=== PATIENT | female | born 1935 | race Caucasian/White ===

== ENCOUNTER 2019-11-07 06:55 | Inpatient (IN) | payer OTHER ==
[~2019-11-07] VITALS: Ht 157.5 cm; Wt 68.0 kg
[~2019-11-07 06:55] MED LIST: ANASTROZOLE1 MG; DIOVAN40 MG; GLIMEPIRIDE1 MG; METFORMIN HCL500 M2; SYNTHROID50 MCG
--- NOTE | 2019-11-07 07:07 | NUR ---
SE RECIBE PTE PTE ALERTA Y ORIENTADA X3,REFIRIDA POR EL .LA PTE REFIERE TENER SANGR[place]O RECTAL DESDE EL RAJI.
--- NOTE | 2019-11-07 08:35 | NUR ---
PACIENTE ALERTA Y ORIENTADA EN LAS DHARMESH ESFERAS, SE DENNIS MUESTRAS DE AUDREY BAJO MEDIDAS ASEPTICAS. SE CANALIZA EN MANO DERECHA ANGIO 20 PATENTE,ARAM DE EDEMA Y ENROJECIMIENTO SE ADMINISTRA 0.45%NSS AT 75ML/HR. SE ADMINISTRA MEDICAMENTO KELLY ORDEN MEDICA. SE ORIENTA PACIENTE A BRITTANIE CONTRASTE POR BOCA Y NOTIFICAR CUANDO LO TERMINE. ORIENTADA SOBRE PROCEDIMIENTOS Y MEDICACION VERBALIZA ENTENDER. EDUCADA A BRITTANIE MUESTRA DE ORINA SE ENTREGA ENVASE. SE REALIZA TYPE AND CROSS 3 UNITS PRBCS HOLD SE LLEVA A BANCO DE AUDREY. PACIENTE BAJO OBSERVACION CONTINUA POR CAMBIOS, BARANDAS ELEVADAS Y TIMBRE ACCESIBLE.
[2019-11-11] MEDS ORDERED: MELATONIN TR 51 EACH (10:48)
[2019-11-11] MEDS ORDERED: CENTRUM COMPLE1 EACH (10:48)
== END 2019-11-11 18:54 | disposition home or self-care (01) | DRG 379 ==
LOC: ER 06:55 → SEC-K 07:43 → MEDJ 11:34 → SEC-K 13:37 → MEDI 11-08 11:05
PROVIDERS: ADMIT Internal Medicine Cardiovascular Disease; ATTEND Internal Medicine Cardiovascular Disease
PROC: BW21ZZZ Computerized Tomography (CT Scan) of Abdomen and Pelvis (ICD-10-PCS; principal; 2019-11-07)
PROC: 30233N1 Transfusion of Nonautologous Red Blood Cells into Peripheral Vein, Percutaneous Approach (ICD-10-PCS; 2019-11-08)
DX: K57.31 Diverticulosis of large intestine without perforation or abscess with bleeding (principal); D50.0 Iron deficiency anemia secondary to blood loss (chronic); I12.9 Hypertensive chronic kidney disease with stage 1 through stage 4 chronic kidney disease, or unspecified chronic kidney disease; N18.2 Chronic kidney disease, stage 2 (mild); E11.65 Type 2 diabetes mellitus with hyperglycemia; K62.5 Hemorrhage of anus and rectum; Z20.828 Contact with and (suspected) exposure to other viral communicable diseases

== ENCOUNTER 2019-11-27 04:47 | Inpatient (IN) | payer OTHER ==
[~2019-11-27] VITALS: Ht 157.5 cm; Wt 68.0 kg
[~2019-11-27 04:47] MED LIST changes: +CENTRUM COMPLE1 EACH; +MELATONIN TR 51 EACH
== END 2019-12-03 18:39 | disposition home or self-care (01) | DRG 379 ==
LOC: ER 04:47 → ICU-2 06:47 → MEDI 11-29 08:10
PROVIDERS: ADMIT Internal Medicine Cardiovascular Disease; ATTEND Internal Medicine Cardiovascular Disease
PROC: 30233N1 Transfusion of Nonautologous Red Blood Cells into Peripheral Vein, Percutaneous Approach (ICD-10-PCS; 2019-11-28)
PROC: 4A12X4Z Monitoring of Cardiac Electrical Activity, External Approach (ICD-10-PCS; 2019-11-29)
PROC: 0DB48ZX Excision of Esophagogastric Junction, Via Natural or Artificial Opening Endoscopic, Diagnostic (ICD-10-PCS; principal; 2019-12-03)
PROC: 0DB78ZX Excision of Stomach, Pylorus, Via Natural or Artificial Opening Endoscopic, Diagnostic (ICD-10-PCS; 2019-12-03)
DX: K62.5 Hemorrhage of anus and rectum (principal); I12.9 Hypertensive chronic kidney disease with stage 1 through stage 4 chronic kidney disease, or unspecified chronic kidney disease; E11.65 Type 2 diabetes mellitus with hyperglycemia; N18.2 Chronic kidney disease, stage 2 (mild); E03.8 Other specified hypothyroidism; D64.9 Anemia, unspecified; K57.30 Diverticulosis of large intestine without perforation or abscess without bleeding; K29.50 Unspecified chronic gastritis without bleeding; Z20.828 Contact with and (suspected) exposure to other viral communicable diseases

== ENCOUNTER 2020-04-26 20:46 | Inpatient (IN) | payer OTHER ==
[~2020-04-26] VITALS: Ht 160 cm; Wt 70.3 kg
[2020-04-27] MEDS ORDERED: ENALAPRIL MALEA10 MG (15:07)
[2020-04-27] MEDS ORDERED: NORVASC10 MG (15:07)
[2020-04-27] MEDS ORDERED: OMEPRAZOLE40 MG (15:07)
== END 2020-05-03 12:17 | disposition home or self-care (01) | DRG 379 ==
LOC: ER 20:46 → MEDJ 04-27 09:18 → SURH 04-27 09:18
PROVIDERS: ADMIT Internal Medicine Cardiovascular Disease; ATTEND Internal Medicine Cardiovascular Disease
PROC: 02HV33Z Insertion of Infusion Device into Superior Vena Cava, Percutaneous Approach (ICD-10-PCS; 2020-04-27)
PROC: 3E043GC Introduction of Other Therapeutic Substance into Central Vein, Percutaneous Approach (ICD-10-PCS; 2020-04-27)
PROC: BW2110Z Computerized Tomography (CT Scan) of Abdomen and Pelvis using Low Osmolar Contrast, Unenhanced and Enhanced (ICD-10-PCS; 2020-04-27)
PROC: 30233N1 Transfusion of Nonautologous Red Blood Cells into Peripheral Vein, Percutaneous Approach (ICD-10-PCS; principal; 2020-04-28)
DX: K57.31 Diverticulosis of large intestine without perforation or abscess with bleeding (principal); D64.9 Anemia, unspecified; I12.9 Hypertensive chronic kidney disease with stage 1 through stage 4 chronic kidney disease, or unspecified chronic kidney disease; E11.22 Type 2 diabetes mellitus with diabetic chronic kidney disease; E11.65 Type 2 diabetes mellitus with hyperglycemia; N18.2 Chronic kidney disease, stage 2 (mild); E03.9 Hypothyroidism, unspecified; Z20.822 Contact with and (suspected) exposure to COVID-19

== ENCOUNTER 2020-08-17 20:49 | Inpatient (IN) | payer OTHER ==
[~2020-08-17] VITALS: Ht 157.5 cm; Wt 68.0 kg
[~2020-08-17 20:49] MED LIST changes: +ENALAPRIL MALEA10 MG; +NORVASC10 MG; +OMEPRAZOLE40 MG
== END 2020-08-20 13:28 | disposition home or self-care (01) | DRG 379 ==
LOC: ER 20:49 → MEDI 08-18 06:19
PROVIDERS: ADMIT Internal Medicine Cardiovascular Disease; ATTEND Internal Medicine Cardiovascular Disease
PROC: 30233N1 Transfusion of Nonautologous Red Blood Cells into Peripheral Vein, Percutaneous Approach (ICD-10-PCS; principal; 2020-08-18)
PROC: BW21YZZ Computerized Tomography (CT Scan) of Abdomen and Pelvis using Other Contrast (ICD-10-PCS; 2020-08-18)
DX: K57.31 Diverticulosis of large intestine without perforation or abscess with bleeding (principal); I10 Essential (primary) hypertension; D64.9 Anemia, unspecified; Z20.822 Contact with and (suspected) exposure to COVID-19; E03.8 Other specified hypothyroidism; E11.9 Type 2 diabetes mellitus without complications; Z79.4 Long term (current) use of insulin

== ENCOUNTER 2020-11-16 01:24 | Inpatient (IN) | payer OTHER, MEDICARE ==
[~2020-11-16] VITALS: Ht 160 cm; Wt 68.0 kg
[2020-11-26] MEDS ORDERED: HUMULIN N100 UNIT/2 SUBCUTANEO ×4 (17:18→17:31)
[2020-11-26] MEDS ORDERED: GLIMEPIRIDE1 MG PO ×2 (17:18→17:32)
[2020-11-26] MEDS ORDERED: LEVOTHYROXINE50 MCG PO ×2 (17:19→17:31)
[2020-11-26] MEDS ORDERED: ANASTROZOLE1 MG PO (17:19)
[2020-11-26] MEDS ORDERED: DEXILANT30 MG PO (17:31)
[2020-11-26] MEDS ORDERED: DIOVAN40 MG PO (17:34)
[2020-11-26] MEDS ORDERED: NORVASC10 MG PO (17:34)
[2020-11-26] MEDS ORDERED: ENALAPRIL MALEA10 MG PO (17:34)
== END 2020-11-26 19:52 | disposition home or self-care (01) | DRG 378 ==
LOC: ER 01:24 → ICU-2 18:02 → SEC-K 18:02 → ER 18:02 → ICU-2 11-17 15:36 → SEC-K 11-17 15:36 → ICU-2 11-17 15:36 → MEDI 11-24 14:28
PROVIDERS: ADMIT Internal Medicine; ATTEND Internal Medicine
PROC: 02HV33Z Insertion of Infusion Device into Superior Vena Cava, Percutaneous Approach (ICD-10-PCS; 2020-11-16)
PROC: 30233N1 Transfusion of Nonautologous Red Blood Cells into Peripheral Vein, Percutaneous Approach (ICD-10-PCS; principal; 2020-11-17)
PROC: 30243L1 Transfusion of Nonautologous Fresh Plasma into Central Vein, Percutaneous Approach (ICD-10-PCS; 2020-11-19)
PROC: 30243K1 Transfusion of Nonautologous Frozen Plasma into Central Vein, Percutaneous Approach (ICD-10-PCS; 2020-11-19)
PROC: 0DJD8ZZ Inspection of Lower Intestinal Tract, Via Natural or Artificial Opening Endoscopic (ICD-10-PCS; 2020-11-23)
DX: K62.5 Hemorrhage of anus and rectum (principal); D62 Acute posthemorrhagic anemia; E03.8 Other specified hypothyroidism; I13.10 Hypertensive heart and chronic kidney disease without heart failure, with stage 1 through stage 4 chronic kidney disease, or unspecified chronic kidney disease; N18.2 Chronic kidney disease, stage 2 (mild); E11.65 Type 2 diabetes mellitus with hyperglycemia

== ENCOUNTER 2021-04-13 12:15 | Inpatient (IN) | payer OTHER ==
[~2021-04-13] VITALS: Ht 157.5 cm; Wt 70.3 kg
[~2021-04-13 12:15] MED LIST changes: +ANASTROZOLE1 MG PO; +DEXILANT30 MG PO; +DIOVAN40 MG PO; +ENALAPRIL MALEA10 MG PO; +GLIMEPIRIDE1 MG PO; +HUMULIN N100 UNIT/2 SUBCUTANEO; +LEVOTHYROXINE50 MCG PO; +NORVASC10 MG PO
== END 2021-04-17 13:35 | disposition home or self-care (01) | DRG 378 ==
LOC: ER 12:15 → MEDI 22:11
PROVIDERS: ADMIT Internal Medicine; ATTEND Internal Medicine
PROC: BW2100Z Computerized Tomography (CT Scan) of Abdomen and Pelvis using High Osmolar Contrast, Unenhanced and Enhanced (ICD-10-PCS; 2021-04-13)
PROC: 30243N0 Transfusion of Autologous Red Blood Cells into Central Vein, Percutaneous Approach (ICD-10-PCS; principal; 2021-04-14)
PROC: 02HV33Z Insertion of Infusion Device into Superior Vena Cava, Percutaneous Approach (ICD-10-PCS; 2021-04-14)
DX: K57.31 Diverticulosis of large intestine without perforation or abscess with bleeding (principal); N39.0 Urinary tract infection, site not specified; R65.10 Systemic inflammatory response syndrome (SIRS) of non-infectious origin without acute organ dysfunction; D62 Acute posthemorrhagic anemia; E11.22 Type 2 diabetes mellitus with diabetic chronic kidney disease; I12.9 Hypertensive chronic kidney disease with stage 1 through stage 4 chronic kidney disease, or unspecified chronic kidney disease; N18.2 Chronic kidney disease, stage 2 (mild); E03.8 Other specified hypothyroidism; Z85.3 Personal history of malignant neoplasm of breast; Z20.828 Contact with and (suspected) exposure to other viral communicable diseases; Z79.4 Long term (current) use of insulin

== ENCOUNTER 2021-06-19 10:04 | Inpatient (IN) | payer OTHER ==
[~2021-06-19] VITALS: Ht 157.5 cm; Wt 68.0 kg
[2021-06-19] MEDS ORDERED: ANASTROZOLE1 MG PO (10:12)
[2021-06-23] MEDS ORDERED: METFORMIN HCL1000 M3 (08:30)
[2021-06-23] MEDS ORDERED: VALSARTAN-HCTZ1 EAC4 (08:30)
[2021-06-23] MEDS ORDERED: PANTOPRAZOLE SO40 MG (08:30)
== END 2021-06-23 10:54 | disposition home or self-care (01) | DRG 379 ==
LOC: ER 10:04 → MEDI 17:57
PROVIDERS: ADMIT Internal Medicine; ATTEND Internal Medicine
PROC: BW21YZZ Computerized Tomography (CT Scan) of Abdomen and Pelvis using Other Contrast (ICD-10-PCS; 2021-06-19)
PROC: 30233N1 Transfusion of Nonautologous Red Blood Cells into Peripheral Vein, Percutaneous Approach (ICD-10-PCS; principal; 2021-06-22)
DX: K57.31 Diverticulosis of large intestine without perforation or abscess with bleeding (principal); K62.5 Hemorrhage of anus and rectum; D64.9 Anemia, unspecified; I10 Essential (primary) hypertension; E11.65 Type 2 diabetes mellitus with hyperglycemia; Z79.4 Long term (current) use of insulin; Z20.822 Contact with and (suspected) exposure to COVID-19

== ENCOUNTER → 2022-03-10 07:21 | Outpatient (CLI) | payer OTHER ==
[~2022-03-10 07:21] MED LIST changes: +METFORMIN HCL1000 M3; +PANTOPRAZOLE SO40 MG; +VALSARTAN-HCTZ1 EAC4
== END | disposition home or self-care (01) ==
LOC: LAB 07:21
PROVIDERS: ATTEND Internal Medicine Hematology & Oncology
DX: D50.8 Other iron deficiency anemias (principal); R79.9 Abnormal finding of blood chemistry, unspecified; I10 Essential (primary) hypertension; R74.02 Elevation of levels of lactic acid dehydrogenase [LDH]; K76.89 Other specified diseases of liver; D51.8 Other vitamin B12 deficiency anemias; D68.8 Other specified coagulation defects; C50.919 Malignant neoplasm of unspecified site of unspecified female breast; R97.8 Other abnormal tumor markers; R97.0 Elevated carcinoembryonic antigen [CEA]; C50.812 Malignant neoplasm of overlapping sites of left female breast; E78.2 Mixed hyperlipidemia; E03.8 Other specified hypothyroidism; D50.0 Iron deficiency anemia secondary to blood loss (chronic); K57.31 Diverticulosis of large intestine without perforation or abscess with bleeding; M81.0 Age-related osteoporosis without current pathological fracture; E56.1 Deficiency of vitamin K